=== PATIENT | female | born 1940 | race Caucasian/White ===

== ENCOUNTER 2019-10-10 18:23 | Emergency (ER) | payer OTHER ==
[~2019-10-10] VITALS: Ht 167.6 cm; Wt 74.8 kg
[2019-10-10 18:45] VITALS: BP_SYST 138
[2019-10-10 21:40] LABS: BASOPHILS # (AUTO) 0.1 K/uL (0.0-0.2); BASOPHILS % (AUTO) 1.3 % (0.0-2.0); EOSINOPHILS # (AUTO) 0.4 K/uL (0.0-0.4); EOSINOPHILS % (AUTO) 5.6 % (0.0-4.0); HEMATOCRIT 37.7 % (36-48); LYMPHOCYTES # (AUTO) 1.9 K/uL (1.0-5.5); MEAN CORPUSCULAR HEMOGLOBIN 30 pg (27-31); MEAN CORPUSCULAR HGB CONC 35 % (32-36); MEAN CORPUSCULAR VOLUME 86 fL (79.0-98.0); MONOCYTES # (AUTO) 0.6 K/uL (0.0-1.0); MONOCYTES % (AUTO) 9.2 % (1.7-9.3); NEUTROPHILS # (AUTO) 3.8 K/uL (1.8-7.7); NEUTROPHILS % (AUTO) 55.9 % (40.0-70.0); PLATELET COUNT (AUTO) 225 K/uL (130-430); RED BLOOD CELL COUNT(AUTO) 4.37 MIL/uL (4.2-6.2); RED CELL DISTRIBUTION WIDTH 13.2 % (9.0-15.0); WHITE BLOOD COUNT (AUTO) 6.7 K/uL (4.8-10.8)
--- NOTE | 2019-10-10 21:41 | NUR ---
Placed in room 3. Placed on monitoring analyst, blood pressure machine and pulse oximeter. To gown for exam. Side rails up.
[2019-10-10 22:07] LABS: ANION GAP 5 (5-15); CALCIUM 8.8 mg/dL (8.4-11.0); CHLORIDE 103 mmol/L (98-107); CREATININE 0.81 mg/dL (0.55-1.30); GLUCOSE 119 mg/dL (70-99); POTASSIUM 4.3 mmol/L (3.5-5.1); SODIUM SERUM 138 mmol/L (136-145); UREA NITROGEN, BLOOD 15 mg/dL (8-21)
[2019-10-10 22:13] LABS: ALANINE AMINOTRANSFERASE 16 U/L (12-78); ALBUMIN 3.9 g/dL (3.4-4.8); ASPARTATE AMINOTRANSFERASE 10 U/L (10-37); TOTAL BILIRUBIN 0.6 mg/dL (0.0-1.0)
--- NOTE | 2019-10-10 22:16 | NUR ---
Patient AAO x 4 ambulates to ER bed 03 with complaints of bilateral leg swelling x 1 week. Denies pain at this time. Denies N/V but complaints of diarrhea x 1 month. Patient reports history of hypertension, thyroidectomy, and GERD/Pierson's esophagus. Even chest rise and fall with respirations. Will continue to monitor.
--- NOTE | 2019-10-10 22:24 | NUR ---
computer technologist at bedside for ultrasound.
[2019-10-11] VITALS: BP_SYST 130
--- NOTE | 2019-10-11 | NUR ---
Patient given written and verbal discharge instructions and verbalizes understanding. ER MD [place] discussed with patient the results and treatment provided. Patient in stable condition. ID arm band removed. No Rx given. Patient educated on pain management and to follow up with PMD. Pain Scale 0. Opportunity for questions provided and answered. Medication side effect fact sheet provided.
== END 2019-10-11 | disposition home or self-care (01) ==
LOC: SED 18:23
DX: R60.0 Localized edema (principal); I10 Essential (primary) hypertension; K21.9 Gastro-esophageal reflux disease without esophagitis; Z88.5 Allergy status to narcotic agent
CPT/HCPCS: 36415; 80053; 83880; 85025; 85379; 93005; 93970; 99284